=== PATIENT | male | born 1940 | race Caucasian/White ===

== ENCOUNTER → 2016-09-15 | Outpatient (CLI) | payer MEDICARE, BC ==
[~2016-09-15] MED LIST: ASPI325T4 PO; ATORVASTATIN CA80 MG PO; DILT90TA PO; LISI-338 PO; METO25TA2 PO; REGADENOSON 0.4 MG/5 ML DISP.SYRIN. IV ONE
--- NOTE | 2016-09-15 16:44 | CARD ---
APPROVED REPORT EXAM: Two-dimensional and M-mode echocardiogram with Doppler and color Doppler. Other Information Quality : GoodHR: 50bpm Rhythm : Bradycardia INDICATION Cardiac Disease: CAD Ischemic cardiomyopathy RISK FACTORS Hypertension Hyperlipidemia 2D DIMENSIONS RVDd2.9 (2.9-3.5cm)Left Atrium(2D)4.8 (1.6-4.0cm) IVSd1.0 (0.7-1.1cm)Aortic Root(2D)3.2 (2.0-3.7cm) LVDd6.0 (3.9-5.9cm)LVOT Diameter2.4 (1.8-2.4cm) PWd1.0 (0.7-1.1cm)LVDs4.5 (2.5-4.0cm) FS (%) 24.7 %SV87.6 ml LVEF(%)48.2 (>50%) Aortic Valve AoV Peak Jac.133.0cm/sAoV VTI33.7cm AO Peak GR.7.1mmHgLVOT Peak Jac.67.8cm/s AO Mean GR.4mmHgAVA (VMAX)2.22cm2 Mitral Valve MV E Wfaeckhq06.2cm/sMV E Peak Gr.3mmHg MV DECEL ZBUX925uzXO A Hshrykyz93.8cm/s MV E Mean Gr.1mmHgE/A Ratio0.9 MV A Fbgyehat256kd Pulmonary Valve PV Peak Wmnmaeze793.4cm/s Tricuspid Valve TR P. Knxvyqfi123rh/sTR Peak Gr.19mmHg Pulmonary Vein S1 Etcfwgxr86.3cm/sD2 Zgxgaeaa52.0cm/s PVa idbrdabl55rbzg LEFT VENTRICLE The left ventricle is normal size. There is normal left ventricular wall thickness. Left ventricle sy stolic function is mildly impaired. The Ejection Fraction is 45-50%. There is mild global hypokinesis of the left ventricle. Transmitral Doppler flow pattern is Grade I-abnormal relaxation pattern. RIGHT VENTRICLE The right ventricle is normal size. There is normal right ventricular wall thickness. The right ventr icular systolic function is normal. ATRIA The left atrium is mildly dilated. The right atrium size is normal. The interatrial septum is intact with no evidence for an atrial septal defect or patent foramen ovale as noted on 2-D or Doppler imagi ng. AORTIC VALVE The aortic valve is mildly sclerotic. The aortic valve is trileaflet. Doppler and Color Flow revealed no significant aortic regurgitation. There is no significant aortic valvular stenosis. MITRAL VALVE Mitral annular calcification is mild. The mitral valve leaflets are thickened. There is no evidence o f mitral valve prolapse. There is no mitral valve stenosis. Doppler and Color Flow revealed mild mitr al regurgitation. TRICUSPID VALVE Doppler and Color Flow revealed mild tricuspid regurgitation. The pulmonary artery systolic pressure is estimated at 22 mmHg. There is no pulmonary hypertension. PULMONIC VALVE Doppler and Color Flow revealed mild pulmonic valvular regurgitation. There is no pulmonic valvular s tenosis. GREAT VESSELS The aortic root is normal in size. The ascending aorta is normal in size. The IVC is normal in size a nd collapses >50% with inspiration. PERICARDIAL EFFUSION There is no evidence of significant pericardial effusion. Critical Notification Critical Value: No <Conclusion> Left ventricle systolic function is mildly impaired. The Ejection Fraction is 45-50%. There is mild global hypokinesis of the left ventricle.
--- NOTE | 2016-09-16 08:51 | RAD ---
APPROVED REPORT Test Type: Pharmacological Stress Nurse/Tech: Stephanie Rodriguez R.N. Test Indications: CAD Cardiac History: CABG 2 years ago Resting Heart Rate: 53 bpm Resting Blood Pressure: 149/60mmHg Pretest Chest Pain: None Pharm. Details Pharmacologic stress testing was performed using 0.4mg per 5ml of regadenoson given intravenously ove r 7-10 seconds. POST EXERCISE Reason for Termination: Infusion complete Max HR: 70 bpm Max Blood Pressure: 149/60mmHg Chest Pain: No. Arrhythmia: No. ST Change: No. INTERPRETATION Stress EKG Conclusion: Baseline EKG showed sinus rhythm. No ischemic changes at peak stress. No arr hythmias. Imaging Protocol IMAGE PROTOCOL: Rest Tc-99m/stress Tc-99m 1 day Rest: Stress: Viability: Radiopharm.Tc99m FsdvtisddEv76x Sestamibi Ykvb26hYm 30mCi Duration 15min. 10min. Img Date 09/15/2016 09/15/2016 Inj-Img Hvan70ayh. 60min. Rest Admin Site:IV - Left AntecubitalAdministrator:RT Misha (R)(N) Stress Admin Site: IV - Left AntecubitalAdministrator: RT Misha (R)(N) STRESS DATA End Diast. Vol.141.0mlAv. Heart Rate54.0bpm End Syst. Vol.69.0mlCO Index BSA0.0L/min Myocardial Rjdq535.0gEject. Heruxgky56.0% Stress Rates Pk. Fill Rate1.90EDV/secLVtime Pk. Fill 298.31msec Pk. Empty Rate2.63ESV/secLVtime Pk. Vsbet878.13msec / Pk. Fill0.53EDV/sec Stress Scores Regional WT1.00Summed WT15.00 Regional WM0.00Summed WM13.00 Study quality was good. Left Ventricular size was Normal at Rest and Stress. Lung uptake was Normal. Left Ventricular ejection fraction is 51%. LV Perfusion Scintigraphic images showed small fixed defect involving basal inferior wall consistent with previous myocardial infarction without any reversibility. Wall Motion Basal inferior wall hypokinesis. LV Perf. Quant 17 Seg. SSS5.00 17 Seg. SRS9.00 17 Seg. SDS0.00 Stress Defect Extent (% LAD)0.00Rest Defect Extent (% LAD)1.90Rev. Defect Extent (% LAD)0.00 Stress Defect Extent (% LCX) 15.00Rest Defect Extent (% LCX)33.80Rev. Defect Extent (% LCX)0.00 Stress Defect Extent (% RCA)0.00Rest Defect Extent (% RCA)13.30Rev. Defect Extent (% RCA)0.00 Stress Defect Extent (% JACK)3.50Rest Defect Extent (% JACK)13.30Rev. Defect Extent (% JACK)0.00 Conclusion 1. Regadenoson cardioisotope stress test showed small basal inferior wall infarct without any ischemi a. 2. Basal inferior wall hypokinesis with ejection fraction calculated at 51%. 3. Low risk for cardiac events.
== END | disposition home or self-care (01) ==
LOC: ECHO 07:43
PROVIDERS: ATTEND Internal Medicine Cardiovascular Disease
DX: I25.10 Atherosclerotic heart disease of native coronary artery without angina pectoris (principal); I25.5 Ischemic cardiomyopathy; I10 Essential (primary) hypertension; Z95.5 Presence of coronary angioplasty implant and graft; Z79.01 Long term (current) use of anticoagulants; I08.1 Rheumatic disorders of both mitral and tricuspid valves
CPT/HCPCS: 78452; 93017; 93306; 96374; 96375; 96376; A9500; J2785

== ENCOUNTER 2017-10-11 06:30 | Outpatient (CLI) | payer MEDICARE, BC ==
[2017-10-11] MEDS ORDERED: IV NORMAL SALINE 1000ML BAG 1,000 ML IV (06:47)
[2017-10-11] MEDS ORDERED: LIDOCAINE 2% 20 ML VIAL. (07:02)
[2017-10-11] MEDS ORDERED: IODIXANOL 320 MG/ML 100 ML VIAL. (07:02)
[2017-10-11 07:09] LABS: HEMATOCRIT 43.1 % (39.0-53.0); HEMOGLOBIN 14.6 g/dL (13.0-17.5); MEAN CORPUSCULAR HEMOGLOBIN 30 pg (25-35); MEAN CORPUSCULAR HGB CONC 34 g/dL (31-37); MEAN CORPUSCULAR VOLUME 89 fL (79-100); PLATELET COUNT 268 x10^3/uL (140-400); RED BLOOD COUNT 4.87 x10^6/uL (4.30-5.70); RED CELL DISTRIBUTION WIDTH 14.3 % (11.5-14.5); WHITE BLOOD COUNT 5.5 x10^3/uL (4.0-11.0)
[2017-10-11 07:12] LABS: ANION GAP 10 (6-14); BLOOD UREA NITROGEN 20 mg/dL (8-26); CALCIUM 8.7 mg/dL (8.5-10.1); CARBON DIOXIDE 26 mmol/L (21-32); CHLORIDE 107 mmol/L (98-107); CREATININE 1.1 mg/dL (0.7-1.3); GFR 65.1; GLUCOSE 110 mg/dL (70-99); POTASSIUM 4.2 mmol/L (3.5-5.1); SODIUM 143 mmol/L (136-145)
[2017-10-11 07:17] LABS: PROTHROMBIN TIME PATIENT 12.2 SEC (11.7-14.0)
[2017-10-11] MEDS ORDERED: MIDAZOLAM HCL/PF 2 MG/2 ML VIAL. (08:01)
[2017-10-11] MEDS ORDERED: fentaNYL PF VIAL 100 MCG/2 ML VIAL (08:01)
[2017-10-11] MEDS: MIDAZOLAM HCL/PF 2 MG/2 ML VIAL. IV (09:02)
[2017-10-11] MEDS: LIDOCAINE 2% 20 ML VIAL. IJ (09:02)
[2017-10-11] MEDS: fentaNYL PF VIAL 100 MCG/2 ML VIAL IV (09:02)
[2017-10-11] MEDS: IODIXANOL 320 MG/ML 100 ML VIAL. IART (09:03)
[2017-10-11] MEDS ORDERED: IV 1/2 NORMAL SALINE 1,000 ML IV (09:09)
[2017-10-11] MEDS ORDERED: CONTRAST GIVEN. MC (09:15)
[2017-10-11] MEDS ORDERED: ACETAMINOPHEN 325 MG TABLET. PO (09:15)
[2017-10-11] MEDS ORDERED: MAGNESIUM HYDROXIDE 2,400 MG/30 ML ORAL.SUSP. PO (09:15)
== END 2017-10-11 12:16 | disposition home or self-care (01) ==
LOC: CCL 06:30
DX: I70.212 Atherosclerosis of native arteries of extremities with intermittent claudication, left leg (principal); I25.10 Atherosclerotic heart disease of native coronary artery without angina pectoris; E78.00 Pure hypercholesterolemia, unspecified; I10 Essential (primary) hypertension; K21.9 Gastro-esophageal reflux disease without esophagitis; Z72.89 Other problems related to lifestyle; Z95.1 Presence of aortocoronary bypass graft; Z79.82 Long term (current) use of aspirin
CPT/HCPCS: 36246; 36415; 75630; 75716; 80048; 85027; 85610; 99152; 99153; C1713; C1769; C1892; G0269; J1644; J2250; J3010

== ENCOUNTER 2018-01-21 08:09 | Emergency (ER) | payer MEDICARE, BC ==
[~2018-01-21] VITALS: Ht 172.7 cm; Wt 81.6 kg
[~2018-01-21 08:09] MED LIST changes: +ASPI-630 PO; -ASPI325T4 PO; +ASPI325T8 PO; +METO50TA6 PO; +PANT20TA2 PO; -REGADENOSON 0.4 MG/5 ML DISP.SYRIN. IV ONE; +SILD100T PO
[2018-01-21 08:20] VITALS: BP 190/72
--- NOTE | 2018-01-21 08:25 | PHYS DOC ---
Adult General Chief Complaint Chief Complaint: SHOULDER INJURY [facility] HPI Patient is a 77 year old medical presents with 6 out of 10 sharp intermittent left shoulder pain that began today after he slipped on soap and fell in the bathtub. Patient denies any loss of consciousness. Denies hitting his head on the ground. Denies any neck pain. He states he took naproxen with some relief. He is also on aspirin 81 mg daily. Review of Systems Review of Systems Constitutional: Denies fever or chills [] Eyes: Denies change in visual acuity, redness, or eye pain [] HENT: Denies nasal congestion or sore throat [] Respiratory: Denies cough or shortness of breath [] Cardiovascular: No additional information not addressed in HPI [] GI: Denies abdominal pain, nausea, vomiting, bloody stools or diarrhea [] : Denies dysuria or hematuria [] Musculoskeletal: Reports left shoulder pain. Integument: Denies rash or skin lesions [] Neurologic: Denies headache, focal weakness or sensory changes [] All other systems were reviewed and found to be within normal limits, except as documented in this note. Allergies Allergies Allergies Coded Allergies Type Severity Reaction Last Updated Verified No Known Drug Allergies 09/15/16 No Physical Exam Physical Exam Constitutional: Well developed, well nourished, no acute distress, non-toxic appearance. [] HENT: Normocephalic, atraumatic, bilateral external ears normal, oropharynx moist, no oral exudates, nose normal. [] Eyes: PERRLA, EOMI, conjunctiva normal, no discharge. [] Neck: Normal range of motion, no tenderness, supple, no stridor. [] Cardiovascular:Heart rate regular rhythm, no murmur [] Lungs & Thorax: Bilateral breath sounds clear to auscultation [] Abdomen: Bowel sounds normal, soft, no tenderness, no masses, no pulsatile masses. [] Skin: Warm, dry, no erythema, no rash. Old bruising noted on the left lateral mid chest, and inner biceps. Back: No tenderness, no CVA tenderness. [] Extremities: Left lateral shoulder with trace amount of bruising. Tenderness diffusely throughout the shoulder. Full range of motion to the shoulder. Adequate abduction and adduction of the shoulder. Adequate plantar flexion and this flexion of the left forearm. Adequate radial medial and ulnar sensation to the left upper extremity. +2 left radial pulse. Cap refill less than 2 seconds the left fingers. Neurologic: Alert and oriented X 3, normal motor function, normal sensory function, no focal deficits noted. [] Psychologic: Affect normal, judgement normal, mood normal. [] EKG EKG [] Radiology/Procedures Radiology/Procedures []PROCEDURE: SHOULDER 2+V LEFT Left shoulder, 3 views, 01/21/2018: HISTORY: Shoulder pain after a fall No fracture or dislocation is identified. There is mild degenerative change at the AC joint. The periarticular soft tissues are unremarkable. IMPRESSION: No acute bony abnormality is detected. Electronically signed by: Wan Fong MD (01/21/2018 8:31 AM) [facility] DICTATED and SIGNED BY: WAN FONG MD DATE: 01/21/18829 Course & Med Decision Making Course & Med Decision Making Pertinent Labs and Imaging studies reviewed. (See chart for details) This is a 77-year-old male patient presenting to the ED today with left shoulder pain that began after he slipped and soap and fell in the bathtub. Left shoulder x-rays interpreted by radiologist are negative for any acute findings. Ice elevation encouraged for the affected extremity. Patient is already on naproxen for pain. Follow-up with PCP orthopedic doctor in 1-2 weeks. Dragon Disclaimer Dragon Disclaimer This electronic medical record was generated, in whole or in part, using a voice recognition dictation system. Departure Departure Impression: Primary Impression: Fall from standing Additional Impression: Contusion of left shoulder Disposition: 01 HOME, SELF-CARE Condition: STABLE Referrals: ELIAN SANCHEZ MD (PCP) KENDRA CHENG MD follow up in one week Patient Instructions: Contusion, Mvmg-im-Hifl, Fall Prevention and Home Safety Additional Instructions: You were seen for left shoulder contusion after falling. Ice and elevate the extremity. Take over the counter pain relievers as needed for pain. Follow-up with your doctor or the provided orthopedic doctor in one week if pain continues. Problem Qualifiers Primary Impression: Fall from standing Encounter type: initial encounter Qualified Codes: W19.XXXA - Unspecified fall, initial encounter Additional Impression: Contusion of left shoulder Encounter type: initial encounter Qualified Codes: S40.012A - Contusion of left shoulder, initial encounter DANA WEST APRN Jan 21, 2018 08:25
--- NOTE | 2018-01-21 08:35 | RAD ---
Left shoulder, 3 views, 01/21/2018: HISTORY: Shoulder pain after a fall No fracture or dislocation is identified. There is mild degenerative change at the AC joint. The periarticular soft tissues are unremarkable. IMPRESSION: No acute bony abnormality is detected. Electronically signed by: Wan Fong MD (01/21/2018 8:31 AM) [facility]
== END 2018-01-21 08:50 | disposition home or self-care (01) ==
LOC: ER 08:09
DX: S40.012A Contusion of left shoulder, initial encounter (principal); W18.2XXA Fall in (into) shower or empty bathtub, initial encounter; Y93.E8 Activity, other personal hygiene; Y99.8 Other external cause status; Y92.091 Bathroom in other non-institutional residence as the place of occurrence of the external cause
CPT/HCPCS: 73030; 99284

== ENCOUNTER → 2018-04-05 | Outpatient (CLI) | payer MEDICARE, BC ==
--- NOTE | 2018-04-05 13:48 | KCIC ---
MR of the left shoulder Indication: Left shoulder pain after a fall 2 months ago. Technique: Standard multiplanar sequences are obtained. Findings: Artifact: No significant image degradation. Acromioclavicular joint: Mildly degenerative Rotator cuff: * Supraspinatus-infraspinatus tendon: Complete full-thickness rupture of supraspinatus and infraspinatus tendon. Retraction measures 3 cm. * Subscapularis tendon: Partial tear * Muscle bulk: Within normal limits * Subacromial subdeltoid bursa: No significant effusion. Fluid: No significant glenohumeral effusion. Glenohumeral cartilage: No acute defect or advanced DJD. Labrum: No evidence of labral detachment. Biceps tendon: Tendinosis. Bones: No lesion or acute fracture. Soft tissue: No acute findings. Impression: 1. Complete full-thickness rupture of the supraspinatus and infraspinatus tendon with retraction. Partial subscapularis tendon tear. 2. Biceps tendinosis. Electronically signed by: Everett Mike MD (04/05/2018 1:45 PM) [facility]
== END | disposition home or self-care (01) ==
LOC: KCIC MRI 11:31
PROVIDERS: ATTEND Family Medicine
DX: S46.012A Strain of muscle(s) and tendon(s) of the rotator cuff of left shoulder, initial encounter (principal); M75.22 Bicipital tendinitis, left shoulder; Z91.81 History of falling; X58.XXXA Exposure to other specified factors, initial encounter; Y93.89 Activity, other specified; Y92.89 Other specified places as the place of occurrence of the external cause; Y99.8 Other external cause status
CPT/HCPCS: 73221

== ENCOUNTER → 2018-04-18 | Outpatient (CLI) | payer MEDICARE, BC ==
--- NOTE | 2018-04-18 11:27 | CARD ---
MR#: [id number] Date of Study: 04/18/2018 Ordering Physician: AMAURI JONES, Referring Physician: AMAURI JONES Tech: Jenn Segura RDCS APPROVED REPORT EXAM: Two-dimensional and M-mode echocardiogram with Doppler and color Doppler. Other Information Quality : GoodHR: 65bpm Rhythm : NSR INDICATION CAD HTN 2D DIMENSIONS RVDd3.3 (2.9-3.5cm)Left Atrium(2D)4.6 (1.6-4.0cm) IVSd1.3 (0.7-1.1cm)Aortic Root(2D)3.4 (2.0-3.7cm) LVDd5.5 (3.9-5.9cm)LVOT Diameter2.2 (1.8-2.4cm) PWd0.9 (0.7-1.1cm)LVDs4.1 (2.5-4.0cm) FS (%) 26.3 %SV75.2 ml LVEF(%)51.0 (>50%) M-Mode DIMENSIONS Left Atrium(MM)4.86 (2.5-4.0cm)Aortic Root3.37 (2.2-3.7cm) Aortic Valve AoV Peak Jac.172.1cm/sAoV VTI46.2cm AO Peak GR.11.8mmHgLVOT Peak Jac.89.7cm/s AO Mean GR.7mmHgAVA (VMAX)1.96cm2 LAURIE (VTI)2.00cm2 Mitral Valve MV E Vxbijauc07.5cm/sMV E Peak Gr.95mmHg MV DECEL DLRM131zvUW A Vfbezfjb63.6cm/s MV E Mean Gr.1mmHgE/A Ratio1.0 MV A Krmaklze604ji Pulmonary Valve PV Peak Comcnejn892.4cm/s Tricuspid Valve TR P. Rsctjymi504mb/sRAP MLWXFVDD3giDn TR Peak Gr.93haYeTHFF84xbYr Pulmonary Vein S1 Lvbzjshe36.4cm/sD2 Nqudgpkb93.4cm/s PVa imhkgkjb516obmy LEFT VENTRICLE The left ventricle is normal size. There is borderline to mild concentric left ventricular hypertroph y. Left ventricle systolic function is low normal. The Ejection Fraction is 50%. There is normal LV s egmental wall motion. Transmitral Doppler flow pattern is Grade I-abnormal relaxation pattern. RIGHT VENTRICLE The right ventricle is normal size. There is normal right ventricular wall thickness. The right ventr icular systolic function is normal. ATRIA The left atrium is mildly dilated. The right atrium size is normal. The interatrial septum is intact with no evidence for an atrial septal defect or patent foramen ovale as noted on 2-D or Doppler imagi ng. AORTIC VALVE The aortic valve is trileaflet. The aortic valve is mildly thickened and sclerotic Doppler and Color Flow revealed no significant aortic regurgitation. There is no significant aortic valvular stenosis. MITRAL VALVE The mitral valve is thickened but opens well. There is no evidence of mitral valve prolapse. There is no mitral valve stenosis. Doppler and Color-flow revealed mild mitral regurgitation. TRICUSPID VALVE The tricuspid valve is normal in structure and function. Doppler and Color Flow revealed trace tricus pid regurgitation. The PA pressure was estimated at 24 mmHg. There is no tricuspid valve prolapse or vegetation. There is no tricuspid valve stenosis. PULMONIC VALVE The pulmonary valve is normal in structure and function. Doppler and Color Flow revealed mild pulmoni c valvular regurgitation. There is no pulmonic valvular stenosis. GREAT VESSELS The aortic root is normal in size. The ascending aorta is normal in size. The IVC is normal in size a nd collapses >50% with inspiration. PERICARDIAL EFFUSION There is no evidence of significant pericardial effusion. Critical Notification Critical Value: No <Conclusion> Left ventricle systolic function is low normal. The Ejection Fraction is 50%. There is borderline to mild concentric left ventricular hypertrophy. Doppler and Color Flow revealed mild pulmonic valvular regurgitation. Signed by : Anthony White, Electronically Approved : 04/18/2018 11:27:14
== END | disposition home or self-care (01) ==
LOC: ECHO 08:00
PROVIDERS: ATTEND Internal Medicine Cardiovascular Disease
DX: I25.10 Atherosclerotic heart disease of native coronary artery without angina pectoris (principal); I34.0 Nonrheumatic mitral (valve) insufficiency; I37.1 Nonrheumatic pulmonary valve insufficiency; I11.9 Hypertensive heart disease without heart failure
CPT/HCPCS: 93306

== ENCOUNTER → 2019-05-17 | Outpatient (CLI) | payer BC, MEDICARE ==
[~2019-05-17] MED LIST changes: +REGADENOSON 0.4 MG/5 ML DISP.SYRIN. IV ONE
--- NOTE | 2019-05-17 09:41 | CARD ---
MR#: [id number] Date of Study: 05/17/2019 Ordering Physician: AMAURI JONES, Referring Physician: AMAURI JONES Tech: Yarelis Montez RDCS APPROVED REPORT EXAM: Two-dimensional and M-mode echocardiogram with Doppler and color Doppler. Other Information Quality : Fair INDICATION Cardiac Disease: CAD Surgery/Intervention CABG: Date: 2009 2D DIMENSIONS RVDd2.9 (2.9-3.5cm)Left Atrium(2D)4.7 (1.6-4.0cm) IVSd0.9 (0.7-1.1cm)Aortic Root(2D)3.5 (2.0-3.7cm) LVDd6.5 (3.9-5.9cm)LVOT Diameter2.1 (1.8-2.4cm) PWd0.9 (0.7-1.1cm)LVDs4.7 (2.5-4.0cm) FS (%) 26.9 %SV110.0 ml LVEF(%)51.5 (>50%) Aortic Valve AoV Peak Jac.177.0cm/sAoV VTI40.3cm AO Peak GR.12.5mmHgLVOT Peak Jac.87.5cm/s AO Mean GR.7mmHgAVA (VMAX)1.79cm2 LAURIE (VTI)2.00cm2 Mitral Valve MV E Juhyosvl51.3cm/sMV DECEL ENXP567hr MV A Jwrbvaby93.2cm/sE/A Ratio1.5 Tricuspid Valve TR P. Ebzktghe369oz/sRAP VZIBBXNS7bwRv TR Peak Gr.23rqRpMVKY68yfQj Pulmonary Vein S1 Jbwqdrqt34.0cm/sD2 Kcqzafsj77.8cm/s LEFT VENTRICLE The Left Ventricle is moderately dilated. There is normal left ventricular wall thickness. The Ejecti on Fraction is 45%. Basal inferior and posterior wall hypokinesis. Transmitral Doppler flow pattern i s Grade II-pseudonormal filling dynamics. RIGHT VENTRICLE The right ventricle is normal size. The right ventricular systolic function is normal. ATRIA The left atrium is mildly dilated. The right atrium size is normal. The interatrial septum is intact with no evidence for an atrial septal defect or patent foramen ovale as noted on 2-D or Doppler imagi ng. AORTIC VALVE The aortic valve is calcified but opens well. Doppler and Color Flow revealed no significant aortic r egurgitation. There is no significant aortic valvular stenosis. MITRAL VALVE The mitral valve is calcified but opens well. Mitral annular calcification is mild. There is no evide nce of mitral valve prolapse. There is no mitral valve stenosis. Doppler and Color-flow revealed mild mitral regurgitation. TRICUSPID VALVE The tricuspid valve is normal in structure and function. Doppler and Color Flow revealed trace to mil d tricuspid regurgitation. There is mild pulmonary hypertension. The PA pressure was estimated at 39 mmHg. There is no tricuspid valve stenosis. PULMONIC VALVE The pulmonary valve is normal in structure and function. Doppler and Color Flow revealed mild to mode rate pulmonic valvular regurgitation. There is no pulmonic valvular stenosis. GREAT VESSELS The aortic root is normal in size. The ascending aorta is normal in size. The IVC is dilated and darren apses >50% with inspiration. PERICARDIAL EFFUSION There is no evidence of significant pericardial effusion. Critical Notification Critical Value: No <Conclusion> Basal inferior and posterior wall hypokinesis. The Ejection Fraction is 45%. Mild mitral regurgitation. Trace to mild tricuspid regurgitation. There is mild pulmonary hypertension. The PA pressure was estimated at 39 mmHg. There is no evidence of significant pericardial effusion. Signed by : Amauri Jones, Electronically Approved : 05/17/2019 09:41:34
--- NOTE | 2019-05-17 14:10 | RAD ---
MR#: [id number] Date of Study: 05/17/2019 Ordering Physician: AMAURI JONES, Referring Physician: EDGAR MACHUCA Tech: MELANIE Mcgregor, ARRT (R) (N) APPROVED REPORT Test Type: Pharmacological Stress Nurse/Tech: ERIN Cedeno Test Indications: CAD Cardiac History: CABG 2009, HTN, x-smoker Medications: See Electronic Medical Record Medical History: See Electronic Medical Record Resting ECG: SR PVC Resting Heart Rate: 61 bpm Resting Blood Pressure: 183/64mmHg Pretest Chest Pain: None Nurse/Tech Notes Lungs CTA, S1S2 Consent: The procedure was explained to the patient in lay terms. Informed consent was witnessed. Edward eout was entered into [employer]. History and Stress Test performed by RT Misha (R) (N) Pharm. Details Pharmacologic stress testing was performed using 0.4mg per 5ml of regadenoson given intravenously ove r 7-10 seconds. Stress Symptoms No chest pain or symptoms. POST EXERCISE Reason for Termination: Infusion complete Max HR: 85 bpm Max Blood Pressure: 153/61mmHg Blood Pressure response to exercise: Normal blood pressure response during stress. Heart Rate response to exercise: normal response Chest Pain: No. Arrhythmia: Yes. bigeminy ST Change: No. INTERPRETATION Stress EKG Conclusion: The resting EKG shows a sinus rhythm, PACs and T-wave inversion in the inferio r leads. The stress EKG shows no significant changes from baseline. No EKG evidence of stressed induced ischemia. Imaging Protocol IMAGE PROTOCOL: Rest Tc-99m/stress Tc-99m 1 day Rest: Stress: Viability: Radiopharm.Tc99m AzmjncdwpEx59r Sestamibi Dose10.5mCi 32.6mCi Img Date 05/17/2019 05/17/2019 Inj-Img Dtxp91xgj. 90min. Rest Admin Site:IV - Right ForearmAdministrator:RT Misha (Ora)(N) Stress Admin Site: IV - Right ForearmAdministrator: RT Misha (Ora)(N) STRESS DATA End Diast. Vol.107.0mlAv. Heart Rate68.0bpm End Syst. Vol.60.0mlCO Index BSA0.0L/min Myocardial Csse318.0gEject. Cwqusuge66.0% Stress Rates Pk. Fill Rate1.44EDV/secLVtime Pk. Fill 300.53msec Pk. Empty Rate3.04ESV/secLVtime Pk. Bfxcv595.29msec 1/3 Pk. Fill0.64EDV/sec Stress Scores Regional WT2.00Summed WT25.00 Regional WM1.00Summed WM24.00 LV Perfusion The stress scans show borderline thinning in the very proximal inferior wall. The rest scans show borderline thinning in the proximal inferior wall. Nuclear imaging shows no reversible ischemia. Nuclear imaging shows fixed borderline thinning in the proximal inferior wall. Wall Motion The left ventricle shows a decreased ejection fraction of 44% with decreased systolic function in the septal wall LV Perf. Quant 17 Seg. SSS3.00 17 Seg. SRS4.00 17 Seg. SDS0.00 Stress Defect Extent (% LAD)0.00Rest Defect Extent (% LAD)0.00Rev. Defect Extent (% LAD)0.00 Stress Defect Extent (% LCX) 26.30Rest Defect Extent (% LCX)23.80Rev. Defect Extent (% LCX)8.80 Stress Defect Extent (% RCA)0.00Rest Defect Extent (% RCA)0.00Rev. Defect Extent (% RCA)0.00 Stress Defect Extent (% JACK)6.50Rest Defect Extent (% JACK)6.30Rev. Defect Extent (% JACK)1.70 Conclusion 1. No EKG evidence of stressed induced ischemia. 2. Nuclear imaging shows no reversible ischemia. 3. Nuclear imaging shows fixed mild thinning of the proximal inferior wall. 4. Left ventricular systolic function is mildly decreased at 44% with a septal wall motion abnormalit y. 5. Moderate risk Lexiscan nuclear stress test. Signed by : Mack Riley MD Electronically Approved : 05/17/2019 14:09:32
== END | disposition home or self-care (01) ==
LOC: ECHO 08:35
PROVIDERS: ATTEND Internal Medicine Cardiovascular Disease
DX: I08.8 Other rheumatic multiple valve diseases (principal); I49.3 Ventricular premature depolarization; I27.20 Pulmonary hypertension, unspecified; I25.10 Atherosclerotic heart disease of native coronary artery without angina pectoris; Z95.1 Presence of aortocoronary bypass graft; Z87.891 Personal history of nicotine dependence
CPT/HCPCS: 78452; 93017; 93306; A9500; J2785

== ENCOUNTER → 2020-05-21 | Outpatient (CLI) | payer MEDICARE, BC ==
[~2020-05-21] MED LIST changes: -REGADENOSON 0.4 MG/5 ML DISP.SYRIN. IV ONE
--- NOTE | 2020-05-22 09:33 | RAD ---
MR#: [id number] Date of Study: 05/21/2020 Ordering Physician: AMAURI JONES, Referring Physician: AMAURI JONES, Tech: Colton Renae MBA, RDMS, RVT, RDCS, RTR APPROVED REPORT Patient Location: OUT-PATIENT Laterality:Bilateral Indications cad Doppler Spectral Velocity Analysis Right Left pCCA 92/11 cm/spCCA 159/23 cm/s mCCA 96/11 cm/smCCA 108/19 cm/s dCCA 79/12 cm/sdCCA 108/17 cm/s Bulb 112/14 cm/sBulb 96/15 cm/s ECA 155/ cm/sECA 160/ cm/s pICA 65/12 cm/spICA 89/17 cm/s Rock 82/13 cm/smICA 97/21 cm/s dICA 85/17 cm/sdICA 125/24 cm/s Vert. 41/ cm/sVert. 45/ cm/s Subcl. 160/ cm/sSubcl. 112/ cm/s ICA/CCA 0.89ICA/CCA 0.79 Findings Grayscale images of the bilateral carotid vessels demonstrates mild intimal hyperplasia and mild diff use plaque. On the right side overall 0 to less than 50% stenosis based on velocity criteria in the internal and common carotid vessels. The vertebral velocities are antegrade. Normal ICA to CCA ratios. On the left side the common carotid velocities are mildly elevated but no focal obstruction is noted on corresponding grayscale images overall likely 0 to less than 50% stenosis. Overall 0 to less than 50% stenosis in the internal carotid artery as well on the left side. Vertebral velocities are ante grade. Normal ICA to CCA ratios. Critical Notification Critical Value: No <Conclusion> 1. No significant carotid occlusive disease bilaterally Signed by : Anthony White, Electronically Approved : 05/22/2020 09:33:16
== END ==
LOC: US 12:50
PROVIDERS: ATTEND Internal Medicine Cardiovascular Disease
DX: I65.23 Occlusion and stenosis of bilateral carotid arteries (principal); I25.10 Atherosclerotic heart disease of native coronary artery without angina pectoris
CPT/HCPCS: 93880

== ENCOUNTER → 2020-06-17 | Outpatient (CLI) | payer MEDICARE, BC ==
--- NOTE | 2020-06-18 10:37 | CARD ---
MR#: [id number] Date of Study: 06/17/2020 Ordering Physician: AMAURI JONES, Referring Physician: AMAURI JONES, Tech: Ameena Nassar [facility] APPROVED REPORT EXAM: Two-dimensional and M-mode echocardiogram with Doppler and color Doppler. Other Information Quality : FairHR: 77bpm Rhythm : NSR INDICATION CAD RISK FACTORS Hypertension Hyperlipidemia 2D DIMENSIONS Left Atrium(2D)5.0 (1.6-4.0cm)IVSd1.3 (0.7-1.1cm) Aortic Root(2D)3.8 (2.0-3.7cm)LVDd5.1 (3.9-5.9cm) PWd1.4 (0.7-1.1cm)IVSs2.1 (0.8-1.2cm) LVDs3.8 (2.5-4.0cm)FS (%) 24.7 % PWs1.8 (0.8-1.2cm)SV59.9 ml Aortic Valve AoV Peak Jac.154.6cm/sAoV VTI40.3cm AO Peak GR.9.6mmHgLVOT Peak Jac.63.6cm/s LVOT VTI 16.60cmAO Mean GR.6mmHg Mitral Valve MV E Ytdpupxf16.0cm/sMV DECEL DZYX427nm MV A Ijidvjkl15.8cm/sMV CDE46sl E/A Ratio1.2MVA (PHT)2.63cm2 TDI E/Lateral E'8.1E/Medial E'11.4 Pulmonary Valve PV Peak Ptrhauzb237.8cm/sPV Peak Grad.5mmHg Tricuspid Valve TR P. Meteseys294xx/sTR Peak Gr.22mmHg LEFT VENTRICLE The left ventricle is normal size. There is borderline to mild concentric left ventricular hypertroph y. Left ventricular systolic function is mildly impaired. Estimated ejection fraction 40-45%. There is mild global hypokinesis of the left ventricle. Transmitral Doppler flow pattern is Grade II-pseudo normal filling dynamics. RIGHT VENTRICLE The right ventricle is normal size. There is normal right ventricular wall thickness. Systolic functi on is mildly reduced. ATRIA The left atrium is mildly dilated. The right atrium is mildly dilated. The interatrial septum is inta ct with no evidence for an atrial septal defect or patent foramen ovale as noted on 2-D or Doppler im aging. AORTIC VALVE The aortic valve is normal in structure and function. Doppler and Color Flow revealed no significant aortic regurgitation. There is no significant aortic valvular stenosis. MITRAL VALVE The mitral valve is normal in structure and function. There is no mitral valve stenosis. Doppler and Color-flow revealed mild mitral regurgitation. TRICUSPID VALVE The tricuspid valve is normal in structure and function. Doppler and Color Flow revealed no tricuspid valve regurgitation noted. PULMONIC VALVE The pulmonary valve is normal in structure and function. Doppler and Color Flow revealed mild pulmoni c valvular regurgitation. GREAT VESSELS The aortic root is normal in size. The ascending aorta is normal in size. The IVC is normal in size a nd collapses >50% with inspiration. PERICARDIAL EFFUSION There is no evidence of significant pericardial effusion. Critical Notification Critical Value: No <Conclusion> The left ventricle is normal size. Left ventricular systolic function is mildly impaired. Estimated ejection fraction 40-45%. There is mild global hypokinesis of the left ventricle. There is borderline to mild concentric left ventricular hypertrophy. Doppler and Color Flow revealed no significant aortic regurgitation. There is no significant aortic valvular stenosis. Doppler and Color-flow revealed mild mitral regurgitation. Doppler and Color Flow revealed no tricuspid valve regurgitation noted. Signed by : Mack Riley MD Electronically Approved : 06/18/2020 10:36:52
== END ==
LOC: CARD 09:00
PROVIDERS: ATTEND Internal Medicine Cardiovascular Disease
DX: I08.8 Other rheumatic multiple valve diseases (principal)
CPT/HCPCS: 93306

== ENCOUNTER → 2021-08-20 | Outpatient (CLI) | payer MEDICARE, BC ==
[~2021-08-20] MED LIST changes: -LISI-338 PO; +LISI5TAB15 PO; +REGADENOSON 0.4 MG/5 ML DISP.SYRIN. IV ONE
--- NOTE | 2021-08-20 13:13 | RAD ---
MR#: [id number] Date of Study: 08/20/2021 Ordering Physician: AMAURI JONES, Referring Physician: EDGAR MACHUCA Tech: RT Misha (R) (N) APPROVED REPORT Test Type: Pharmacological Stress Nurse/Tech: ERIN URIOSTEGUI Test Indications: CAD Cardiac History: HTN, CAD, CABG- SEE EMR Medications: SEE EMR Medical History: SEE EMR Resting ECG: SB Resting Heart Rate: 52 bpm Resting Blood Pressure: 126/54mmHg Pretest Chest Pain: No chest pain Nurse/Tech Notes S2,S2, LUNGS CTA, DENIED CP OR SOA, VSS. NO COMPLAINTS. Consent: The procedure was explained to the patient in lay terms. Informed consent was witnessed. Edward eout was entered into [employer]. History and Stress Test performed by MELANIE Mcgregor, AMANUEL (R) (N) Pharm. Details Pharmacologic stress testing was performed using 0.4mg per 5ml of regadenoson given intravenously ove r 7-10 seconds. Stress Symptoms PT HAD A BRIEF EPISODE OF SOA DURING INITAL INJECTION, SYMPTOMS SUBSIDED QUICKLY. PT DENIED CHEST GABINO N. VSS. POST EXERCISE Reason for Termination: Infusion complete Max HR: 83 bpm Max Blood Pressure: 133/55mmHg Blood Pressure response to exercise: Normal blood pressure response during stress. Heart Rate response to exercise: WNL Chest Pain: No. Arrhythmia: . SB /SR W/ T- WAVE INVERSION NOTED IN VARIOUS LEADS- NOT SIGNIFICANTLY CHANGED FROM BASE LINE EKG. INTERPRETATION Stress EKG Conclusion: No evidence of stress induced EKG changes. Imaging Protocol IMAGE PROTOCOL: Rest Tc-99m/stress Tc-99m 1 day Rest: Stress: Viability: Radiopharm.Tc99m CzhqgwtdwUs71j Sestamibi Hald99fFt 32mCi Duration 015min. 10min. Img Date 08/20/2021 08/20/2021 Inj-Img [id number]. 60min. Rest Admin Site:IV - Right HandAdministrator:MELANIE Mcgregor, AMANUEL (R)(N) Stress Admin Site: IV - Right HandAdministrator: Ina Crowe, NMTCB, ARRT (R)(N) STRESS DATA End Diast. Vol.163.0mlAv. Heart Rate55.0bpm End Syst. Vol.71.0mlCO Index BSA0.0L/min Myocardial Xjji182.0gEject. Rskxzovx53.0% Stress Rates Pk. Fill Rate1.60EDV/secLVtime Pk. Fill 136.02msec Pk. Empty Rate2.62ESV/secLVtime Pk. Erxjc226.76msec /3 Pk. Fill1.10EDV/sec Stress Scores Regional WT0.00Summed WT0.00 Regional WM0.00Summed WM7.00 The rest and stress images show normal perfusion, normal contraction and thickening. LV Perf. Quant 17 Seg. SSS5.00 17 Seg. SRS8.00 17 Seg. SDS1.00 Stress Defect Extent (% LAD)2.50Rest Defect Extent (% LAD)8.10Rev. Defect Extent (% LAD)0.00 Stress Defect Extent (% LCX) 25.00Rest Defect Extent (% LCX)26.30Rev. Defect Extent (% LCX)0.00 Stress Defect Extent (% RCA)0.00Rest Defect Extent (% RCA)0.00Rev. Defect Extent (% RCA)0.00 Stress Defect Extent (% JACK)7.00Rest Defect Extent (% JACK)10.90Rev. Defect Extent (% JACK)0.00 Other Information Quality:Average Risk Assessment: Low Risk Conclusion 1. No evidence of EKG changes with stress testing. 2. Normal perfusion at stress/rest. 3. Low risk study. 4. EF > 60%. Signed by : Anthony White, Electronically Approved : 08/20/2021 13:13:13
== END ==
LOC: NM 08:03
PROVIDERS: ATTEND Internal Medicine Cardiovascular Disease
DX: I25.10 Atherosclerotic heart disease of native coronary artery without angina pectoris (principal)
CPT/HCPCS: 78452; 93017; A9500; J2785